=== PATIENT | male | born 1980 | race African-American/Black ===

== ENCOUNTER 2022-06-16 01:47 | Inpatient (IN) | payer BC, MEDICAID ==
[~2022-06-16] VITALS: Ht 190.5 cm; Wt 104.3 kg
[2022-06-16 06:41] LABS: COVID AG,FIA SOURCE NASAL SWAB
[2022-06-16 15:20] VITALS: BP 140/81
[2022-06-16] MEDS: DIVALPROEX SODIUM 500 MG DR TABLET PO SCH (20:24)
[2022-06-16] MEDS: ZOLPIDEM TARTRATE 10 MG TABLET PO PRN (23:43)
[2022-06-17] MEDS: ZIPRASIDONE HCL 80 MG CAPSULE PO SCH ×2 (06:40→16:47)
[2022-06-17] MEDS: DIVALPROEX SODIUM 500 MG DR TABLET PO SCH ×3 (09:00→20:25)
[2022-06-17] MEDS ORDERED: PETROLATUM,WHITE 28 GM JELLY TP PRN (11:15)
[2022-06-17] MEDS ORDERED: ONDANSETRON HCL 4 MG TABLET PO PRN (11:15)
[2022-06-17] MEDS ORDERED: IBUPROFEN 600 MG TABLET PO PRN (11:15)
[2022-06-17] MEDS ORDERED: MAGNESIUM HYDROXIDE SUSPENSION 30 ML UDCUP PO PRN (11:15)
[2022-06-17] MEDS ORDERED: DOCUSATE SODIUM 100 MG CAPSULE PO PRN (11:15)
[2022-06-17] MEDS ORDERED: CloNIDine HCL 0.1 MG TABLET PO PRN (11:15)
[2022-06-17] MEDS ORDERED: OMEPRAZOLE 20 MG CAPSULE PO PRN (11:15)
[2022-06-17] MEDS ORDERED: BACITRACIN 28 GM OINTMENT TP PRN (11:15)
[2022-06-17] MEDS ORDERED: MAG HYDROX/AL HYDROX/SIMETH ES 30 ML SUSPENSION UDCUP PO PRN (11:15)
[2022-06-17] MEDS ORDERED: BENZOCAINE/MENTHOL LOZENGE PO PRN (11:15)
[2022-06-17] MEDS ORDERED: ACETAMINOPHEN 325 MG TABLET PO PRN (11:15)
[2022-06-17] MEDS ORDERED: LOPERAMIDE HCL 2 MG CAPSULE PO PRN (11:15)
[2022-06-17] MEDS ORDERED: ALBUTEROL SULFATE HFA 90 MCG/PUFF 8 GM INHALER IH PRN (11:15)
[2022-06-17 16:40] VITALS: BP 126/77
[2022-06-18 01:18] VITALS: BP 139/77
[2022-06-18] MEDS: ZOLPIDEM TARTRATE 10 MG TABLET PO PRN ×2 (01:18→22:40)
[2022-06-18] MEDS: ZIPRASIDONE HCL 80 MG CAPSULE PO SCH ×2 (06:55→17:50)
[2022-06-18] MEDS: DIVALPROEX SODIUM 500 MG DR TABLET PO SCH ×2 (08:46→21:09)
[2022-06-18] MEDS: LORazepam 2 MG TABLET PO PRN (15:54)
[2022-06-19] MEDS: HALOPERIDOL 5 MG TABLET PO PRN ×2 (04:52→23:38)
[2022-06-19] MEDS: LORazepam 2 MG TABLET PO PRN ×2 (04:52→23:39)
[2022-06-19] MEDS: ZIPRASIDONE HCL 80 MG CAPSULE PO SCH ×2 (07:00→16:47)
[2022-06-19] MEDS: DIVALPROEX SODIUM 500 MG DR TABLET PO SCH ×2 (09:30→21:25)
[2022-06-19 16:25] VITALS: BP 123/70
[2022-06-19] MEDS: ZOLPIDEM TARTRATE 10 MG TABLET PO PRN (22:17)
[2022-06-20] MEDS: ZIPRASIDONE HCL 80 MG CAPSULE PO SCH ×2 (07:02→17:35)
[2022-06-20 08:00] VITALS: BP 109/64
[2022-06-20] MEDS: DIVALPROEX SODIUM 500 MG DR TABLET PO SCH ×2 (09:00→20:34)
[2022-06-20 16:04] LABS: BASOPHILS % (AUTO) 0.8 % (0.0-2.0); EOSINOPHILS % (AUTO) 1.8 % (1.0-6.0); HEMATOCRIT 41.4 % (41-53); HEMOGLOBIN 13.9 g/dL (13.5-17.5); LYMPHOCYTES # (AUTO) 1.3 K/uL (1.0-4.8); LYMPHOCYTES % (AUTO) 24.8 % (22.0-44.0); MEAN CORPUSCULAR HEMOGLOBIN 33.1 pg (26.0-34.0); MEAN CORPUSCULAR HGB CONC 33.6 G/dL (31.0-37.0); MEAN CORPUSCULAR VOLUME 99 fL (80-100); MONOCYTES # (AUTO) 0.3 K/uL (0.1-1.0); MONOCYTES % (AUTO) 5.1 % (2.0-9.0); NEUTROPHILS # (AUTO) 3.4 K/uL (1.8-7.7); NEUTROPHILS % (AUTO) 67.5 % (40.0-70.0); PLATELET COUNT (AUTO) 304 K/uL (150-450); RED CELL DISTRIBUTION WIDTH 13.3 % (11.5-14.5)
[2022-06-20 16:06] LABS: COVID AG,FIA SOURCE NASAL SWAB
[2022-06-20 16:20] LABS: ALANINE AMINOTRANSFERASE 30 U/L (12-78); ALBUMIN 2.9 g/dL (3.4-5.0); ALKALINE PHOSPHATASE 80 U/L (46-116); ANION GAP -1 mmol/L (8-16); ASPARTATE AMINOTRANSFERASE 21 U/L (15-37); BILIRUBIN,TOTAL 0.1 mg/dL (0.1-1.0); CALCIUM, TOTAL 8.5 mg/dL (8.8-10.5); CARBON DIOXIDE 33 mmol/L (22-29); CHLORIDE 103 mmol/L (98-107); CREATININE 0.88 mg/dL (0.60-1.30); GLOMERULAR FILTR. RATE CALC > 60 mL/min (>60); GLUCOSE,RANDOM 109 mg/dL (70-110); PHOSPHORUS 3.7 mg/dL (2.5-4.9); POTASSIUM 3.9 mmol/L (3.5-5.1); SODIUM SERUM 135 mmol/L (136-145); TOTAL PROTEIN, SERUM 6.5 g/dL (6.4-8.2); UREA NITROGEN, BLOOD 12 mg/dL (7-18)
[2022-06-20 16:31] LABS: VALPROIC ACID 19 mcg/mL (50-100)
[2022-06-20] MEDS: LORazepam 2 MG TABLET PO PRN (21:22)
[2022-06-20] MEDS: ZOLPIDEM TARTRATE 10 MG TABLET PO PRN (22:22)
[2022-06-21] MEDS: ZIPRASIDONE HCL 80 MG CAPSULE PO SCH (06:40)
[2022-06-21] MEDS: DIVALPROEX SODIUM 500 MG DR TABLET PO SCH (09:00)
[2022-06-21] MEDS ORDERED: ZIPR80CA9 PO ×2 (09:54→10:54)
[2022-06-21] MEDS ORDERED: DIVA-112 PO ×2 (09:54→10:54)
== END 2022-06-21 10:50 | disposition home or self-care (01) | DRG 750 ==
LOC: EMS 01:48 → 3EI 14:13
PROVIDERS: ADMIT Psychiatry & Neurology Psychiatry; ATTEND Psychiatry & Neurology Psychiatry
DX: F20.9 Schizophrenia, unspecified (principal); R45.850 Homicidal ideations; R45.851 Suicidal ideations; F15.10 Other stimulant abuse, uncomplicated; Z53.20 Procedure and treatment not carried out because of patient's decision for unspecified reasons; F41.9 Anxiety disorder, unspecified; G47.00 Insomnia, unspecified; Z20.822 Contact with and (suspected) exposure to COVID-19; K59.00 Constipation, unspecified; I10 Essential (primary) hypertension; F10.10 Alcohol abuse, uncomplicated; Z71.51 Drug abuse counseling and surveillance of drug abuser; Z59.00 Homelessness unspecified; Z79.899 Other long term (current) drug therapy; Z71.41 Alcohol abuse counseling and surveillance of alcoholic
CPT/HCPCS: 80053; 80164; 83735; 84100; 85025; 99285